=== PATIENT | male | born 1955 | race Hispanic/Latino ===

== ENCOUNTER 2017-09-26 19:23 | Inpatient (IN) | payer MEDICARE ==
[2017-09-26] MEDS ORDERED: Acetaminophen 500 MG TAB ONE (20:14)
[2017-09-26 20:28] LABS: #Eosinphils 0.1 thou/uL (0.0-0.7); #Lymphocytes 0.9 thou/uL (1.20-3.40); #Monocytes 0.4 thou/uL (0.11-0.59); #Neutrophils 9.2 thou/uL (1.40-6.50); %Basophils 0.1 % (0.0-1.0); %Eosinophils 0.5 % (0.0-10.0); %Lymphocytes 8.7 % (21.0-51.0); %Monocytes 3.4 % (0.0-10.0); %Neutrophils 87.3 % (42.0-75.0); Hemoglobin 11.1 g/dL (14.0-18.0); Mean Corpuscular HGB CONC 32.6 g/dL (32.0-36.0); Mean Corpuscular Hemoglobin 29.7 pg (27.0-31.0); Mean Corpuscular Volume 91.3 fl (80.0-94.0); Mean Platelet Volume 7.8 fL (7.4-10.4); Platelet Count 218 thou/uL (130-400); RBC Distribution Width 15.7 % (11.5-14.5); Red Blood Cell (RBC) Count 3.75 mill/uL (4.70-6.10); White Blood Cell (WBC) Count 10.5 thou/uL (4.8-10.8)
[2017-09-26] MEDS ORDERED: Piperacillin/Tazobactam 4.5 GM VIAL ONE (21:13)
[2017-09-26 21:16] LABS: ALT (SGPT) 13 U/L (8-55); AST (SGOT) 13 U/L (5-34); Albumin 3.8 g/dL (3.4-4.8); Alkaline Phosphatase 83 U/L (40-150); Anion Gap 15 mmol/L (10-20); BUN (Urea Nitrogen) 19 mg/dL (8.4-25.7); Bilirubin, Total 0.5 mg/dL (0.2-1.2); Calc. Creatinine Clearance 0 mL/min (70-130); Calcium 8.4 mg/dL (7.8-10.44); Carbon Dioxide 27 mmol/L (23-31); Chloride 97 mmol/L (98-107); Estimated GFR-MDRD 16; Globulin 3.8 g/dL (2.4-3.5); Glucose 136 mg/dL (80-115); Potassium 4.2 mmol/L (3.5-5.1); Protein, Total 7.6 g/dL (5.8-8.1); Sodium 135 mmol/L (136-145)
--- NOTE | 2017-09-26 21:58 | RAD ---
PORTABLE CHEST: 09/26/17 HISTORY: Vomiting with chills and fever. Possible aspiration. COMPARISON: 09/06/16. There is infiltrate in the right infrahilar region which would be suspicious for aspiration pneumonia . There is also abnormal opacity in the left base consistent with left basilar infiltrate and possibl e effusion. Upper lung castañeda are clear. Heart size is upper normal with postop sternotomy change. Di alysis catheter has tip overlying the right atrium. IMPRESSION: Evidence of bibasilar infiltrates. POS: [facility]
[2017-09-26 22:32] LABS: Bilirubin Negative (Negative); Clarity CLEAR (Clear); Glucose, Urine (Dipstick) 100 mg/dL (Negative); Leukocyte Negative (Negative); Nitrite Negative (Negative); Protein, Urine (Dipstick) > or equal to 300 mg/dL (Neg-Trace); Specific Gravity, Urine 1.016 (1.002-1.036); Urobilinogen 0.2 mg/dL (0.2-1.0)
[2017-09-26 22:35] LABS: Bacteria/HPF None Seen HPF (None Seen); Hyaline Casts/LPF 4-6 HYALINE CAST LPF (0-3 Hyaline); Pathc Cast-AUWi Flag 0.29 (0-2.49); WBC/HPF 0-3 HPF (0-3); Yeast-AUWi Flag 8.5 (0-25.0)
[2017-09-26 22:37] LABS: Blood, Urine Trace (Negative)
[2017-09-26 22:55] LABS: RBC/HPF 0-3 HPF (0-3); Sperm/HPF 1+ HPF (None Seen)
[2017-09-27] MEDS ORDERED: Acetaminophen 325 MG TAB PO PRN (01:04)
[2017-09-27 03:51] VITALS: BMI 23.8
[2017-09-27] MEDS ORDERED: Clopidogrel Bisulfate 75 MG TAB PO SCH (09:00)
[2017-09-27] MEDS: Gabapentin 300 MG CAP PO SCH ×2 (09:33→21:12)
[2017-09-27] MEDS: Enoxaparin Sodium 40 MG/0.4 ML SYRINGE SC SCH (09:33)
[2017-09-27] MEDS: Aspirin 81 mg Enteric Coated Tablet PO SCH (09:34)
[2017-09-27] MEDS: Pantoprazole 40 MG VIAL IVP SCH (09:34)
[2017-09-27] MEDS: Sodium Chloride 0.9% 1,000 ML IV SCH ×2 (09:35→21:11)
--- NOTE | 2017-09-27 10:02 | HP ---
CHIEF COMPLAINT: Fever, nausea, and vomiting. HISTORY OF PRESENT ILLNESS: This is a 62-year-old male with multiple medical problems inclu ding end-stage renal disease on hemodialysis, coronary artery disease, atherosclerotic vascular disea se, status post coronary bypass graft, status post fem-pop bypass, status post CVA who presents to [facility] emergency department last night with complaints of onset of fever and nausea and vomiting yesterday while in dialysis. The patient states that he was in his usual state of health, went to dialysis, s tated that he had 2 episodes of vomiting and had developed a fever during his time in dialysis. He h ad increased weakness. He denies any cough. Denies recent upper respiratory symptoms. He presented to the emergency department due to the fever and vomiting, was found to have a bibasilar infiltrate consistent with pneumonia. He was started on IV antibiotics including Zosyn, Levaquin, and vancomyci n in the ER. He states that he is feeling some better now, continues to feel weak, has on and off fe vers. No further nausea or vomiting. Still denies any cough at this time. Of note, he had an extended stay in the hospital 3 years ago due to apparent aspiration pneumonia, re spiratory failure, required ICU monitoring and mechanical ventilation. He had a PEG tube placed duri ng that hospitalization. He subsequently recovered from that, was able to swallow better and has bee n swallowing at risk since that time. PAST MEDICAL HISTORY: End-stage renal disease on dialysis, hypertension, hyperlipidemia, type 2 diab etes, cardiomyopathy with ejection fraction less than 30%, peripheral vascular disease, history of CV A, anxiety and depression. PAST SURGICAL HISTORY: Three-vessel fem-pop bypass in 2006, history of aneurysm repair in 2010, righ t fem-pop bypass in 2010. MEDICATIONS: Aspirin 81 mg daily, gabapentin 600 mg once daily, clonidine 0.1 mg q.8h. p.r.n., simva statin 40 mg at bedtime, Plavix 75 mg at bedtime, pantoprazole once daily, Levemir 15 units b.i.d., H umalog with meals, sertraline 100 mg daily, lisinopril 10 mg daily. SOCIAL HISTORY: He lives at home, has home health and family nearby. No alcohol or drug use. Liliana nues to smoke 5-6 cigarettes a day. FAMILY HISTORY: Positive for diabetes, hypertension and heart disease. REVIEW OF SYSTEMS: As per the history of present illness. GENERAL: Positive for weakness. HEENT: No visual or hearing changes. No cough or congestion. CARDIAC: No chest pain, shortness of breath. PULMONARY: Denies cough or hemoptysis. GASTROINTESTINAL: Positive nausea and vomiting. No abdominal pain, melena, hematochezia. GENITOURINARY: No dysuria or hematuria. He is still urinating in a diaper. History of BPH. NEUROLOGIC: History of cerebrovascular accident with resultant hemiparesis and dysphagia, status pos t PEG tube placement and resultant removal. PHYSICAL EXAMINATION: VITAL SIGNS: Temperature 98.7, pulse of 82, respirations 16, blood pressure 147/65, pulse ox 92-94% on room air. GENERAL: He is awake and alert, in no acute distress. He appears comfortable. Mucosa is dry. NECK: Supple. HEART: Regular rate and rhythm with 2/6 systolic ejection murmur. LUNGS: No wheezes, occasional rhonchi bilaterally. ABDOMEN: Soft, nontender, nondistended. EXTREMITIES: No edema. 2+ peripheral pulses bilaterally. LABORATORY AND X-RAY FINDINGS: White blood cell count 10.5, hemoglobin hematocrit 11.1 and 34.2, rika telets of 218. Sodium 135, potassium 4.2, chloride 97, CO2 of 27, BUN and creatinine 19 and 3.8 with a GFR of 16, glucose of 136. AST and ALT are normal. Lactic acid was 1.7. Blood cultures are pend ing. Chest x-ray from last night revealed evidence of bibasilar infiltrate suspicious for aspiration pneum onia. ASSESSMENT: 1. This is a 62-year-old gentleman with multiple medical problems with history dysphagia due to a ce rebrovascular accident in the past, now with a suspicion for aspiration pneumonia. I agree with admi gudelia. We will continue IV Levaquin. 2. Possible aspiration. We will make n.p.o. at this time and consult Speech Therapy for swallow viktoria luation. 3. End stage renal disease. We will consult Nephrology and continue dialysis as his protocol. 4. Type 2 diabetes. We will hold routine insulin as he is n.p.o. and cover with a sliding scale. 5. Hypertension. I will continue his medications. 6. History of cerebrovascular accident.
[2017-09-27] MEDS: Nicotine 7 MG PATCH TOP SCH (14:53)
[2017-09-27] MEDS: HumaLOG 300 UNITS/3 ML VIAL SC SCH ×2 (15:20→18:37)
--- NOTE | 2017-09-27 15:31 | RAD ---
MODIFIED BARIUM SWALLOW: History: Dysphagia with feeding difficulties. Technique: Real-time video fluoroscopic examination was performed in conjunction with the speech ther apy department. The patient received various thicknesses of barium impregnated fluid and solid substa nces. Please see the speech therapy report for details concerning the materials administered. The tot al fluoroscopic time for the exam was 1.5 minutes with a total exposure of 0.573 mGy*cm^2. FINDINGS: The patient did have episodes of flash penetration with thin barium liquids by spoon as well as by cu p. There were no episodes of aspiration. The patient no episodes of tracheal penetration of aspiratio n with barium impregnated pudding or cookie. The patient did have a mild amount of pooling of all con sistencies within the vallecula. IMPRESSION: 1. Flash penetration with thin barium liquids. No aspiration was obtained. 2. Mild pooling with all consistencies. 3. Please see speech therapy report for full details. POS: [facility]
[2017-09-28] MEDS: cloNIDine 0.1 MG TAB PO PRN ×2 (00:08→09:57)
[2017-09-28] MEDS: HumaLOG 300 UNITS/3 ML VIAL SC SCH ×4 (00:08→19:07)
[2017-09-28 05:41] LABS: #Basophils 0.1 thou/uL (0.0-0.2); #Eosinphils 0.1 thou/uL (0.0-0.7); #Lymphocytes 1.7 thou/uL (1.20-3.40); #Monocytes 0.8 thou/uL (0.11-0.59); #Neutrophils 6.3 thou/uL (1.40-6.50); %Basophils 0.9 % (0.0-1.0); %Eosinophils 1.3 % (0.0-10.0); %Lymphocytes 19.3 % (21.0-51.0); %Monocytes 8.5 % (0.0-10.0); Mean Corpuscular HGB CONC 32.4 g/dL (32.0-36.0); Mean Corpuscular Hemoglobin 29.5 pg (27.0-31.0); Mean Corpuscular Volume 91.1 fl (80.0-94.0); Mean Platelet Volume 8.1 fL (7.4-10.4); Platelet Count 159 thou/uL (130-400); RBC Distribution Width 15.6 % (11.5-14.5); Red Blood Cell (RBC) Count 3.04 mill/uL (4.70-6.10)
[2017-09-28 05:52] LABS: ALT (SGPT) 34 U/L (8-55); AST (SGOT) 37 U/L (5-34); Albumin 3.2 g/dL (3.4-4.8); Alkaline Phosphatase 95 U/L (40-150); Anion Gap 15 mmol/L (10-20); BUN (Urea Nitrogen) 39 mg/dL (8.4-25.7); Bilirubin, Total 0.5 mg/dL (0.2-1.2); Calc. Creatinine Clearance 13 mL/min (70-130); Calcium 8.5 mg/dL (7.8-10.44); Carbon Dioxide 25 mmol/L (23-31); Chloride 97 mmol/L (98-107); Estimated GFR-MDRD 10; Globulin 3.1 g/dL (2.4-3.5); Glucose 134 mg/dL (80-115); Potassium 4.4 mmol/L (3.5-5.1); Protein, Total 6.3 g/dL (5.8-8.1); Sodium 133 mmol/L (136-145)
[2017-09-28] MEDS: Sodium Chloride 0.9% 1,000 ML IV SCH ×3 (06:36→20:44)
--- NOTE | 2017-09-28 07:45 | RAD ---
CHEST 1 VIEW: HISTORY: Fever. Chest pain. COMPARISON: 09/26/17. FINDINGS: Cardiac silhouette is magnified and upper limits of normal in size. Pulmonary vasculature is less en gorged than on the prior study. Infiltrate at the right lung bas is again demonstrated. Left lung b ase is less opacified than on the prior study. Mediastinum is midline with aortic calcification, pos toperative changes, and a right-sided dialysis catheter. IMPRESSION: Interval decrease in degree of pulmonary vascular congestion. Persistent right basilar infiltrate, c onsistent with pneumonia. POS: [facility]
[2017-09-28] MEDS ORDERED: Heparin 1,000 UNITS/ML VIAL ONE (11:11)
[2017-09-28] MEDS ORDERED: Loperamide HCl 2 MG CAP PO PRN (12:59)
[2017-09-28] MEDS ORDERED: hydrALAZINE 25 MG TAB PO SCH (13:00)
--- NOTE | 2017-09-28 13:21 | PRG ---
DATE OF SERVICE: 09/28/2017 SUBJECTIVE: The patient is feeling some better, continues to deny cough. He is less short of breath . He is more awake and alert, and back to his baseline as per his daughter. He has not had any furt her bouts of nausea or vomiting. Speech Therapy has performed their evaluation including a modified barium swallow and has made the recommendations as far as his swallowing and he is tolerating his t at this time. No fevers or chills. OBJECTIVE: VITAL SIGNS: Temperature 98.4, pulse of 89, respirations 18, blood pressure 180/77, pulse ox is 94% on room air. GENERAL: He is awake and alert, in no acute distress. Slow speech, but clear. NECK: Supple. HEART: Regular rate and rhythm. LUNGS: Clear anteriorly. ABDOMEN: Soft. EXTREMITIES: No edema. LABORATORY DATA: White blood cell count 9000, hemoglobin and hematocrit 9 and 27.7, platelets of 159 . Sodium 133, potassium 4.4, chloride 97, CO2 of 25, BUN and creatinine 39 and 5.92 with a GFR of 10 . Serum glucose 157, 172, 109. AST and ALT are normal. Chest x-ray showed some improvement from . Continues to have right basilar infiltrate. ASSESSMENT AND PLAN: 1. This is a 62-year-old gentleman with multiple medical problems including history of dysphagia sec ondary to a CVA, history of repeated hospitalizations for aspiration pneumonia, now with apparent rec urrence of aspiration pneumonia. He has improved significantly with IV Levaquin and will continue th at at this time. 2. Recurrent aspiration, recommendations as per Speech Therapy and Dietary for his diet at this time . 3. End stage renal disease. We will continue dialysis as per Nephrology. 4. Type 2 diabetes. We will start his insulin now that he is starting a diet again and monitor clos josh. 5. Hypertension. We will start him back on his lisinopril as well as hydralazine p.r.n. 6. Anemia, likely secondary to chronic disease and renal disease. Continue to monitor closely. DISPOSITION: Hopefully home in the next 1-2 days. Home health has already been arranged and will co kathy as he has been receiving that.
[2017-09-28] MEDS: Enoxaparin Sodium 40 MG/0.4 ML SYRINGE SC SCH (13:58)
[2017-09-28] MEDS: Gabapentin 300 MG CAP PO SCH ×2 (13:58→20:33)
[2017-09-28] MEDS: Aspirin 81 mg Enteric Coated Tablet PO SCH (13:59)
[2017-09-28] MEDS: Pantoprazole 40 MG VIAL IVP SCH (14:04)
[2017-09-28] MEDS: Nicotine 7 MG PATCH TOP SCH (16:43)
[2017-09-28] MEDS: hydrALAZINE 25 MG TAB PO SCH (20:29)
[2017-09-28] MEDS: Lisinopril 10 MG TAB PO SCH (20:34)
[2017-09-29] MEDS: HumaLOG 300 UNITS/3 ML VIAL SC SCH ×4 (00:48→18:48)
[2017-09-29 05:34] LABS: #Eosinphils 0.1 thou/uL (0.0-0.7); #Lymphocytes 1.4 thou/uL (1.20-3.40); #Monocytes 0.6 thou/uL (0.11-0.59); %Basophils 0.2 % (0.0-1.0); %Eosinophils 1.6 % (0.0-10.0); %Lymphocytes 16.9 % (21.0-51.0); %Monocytes 6.9 % (0.0-10.0); %Neutrophils 74.4 % (42.0-75.0); Hemoglobin 8.9 g/dL (14.0-18.0); Mean Corpuscular HGB CONC 32.1 g/dL (32.0-36.0); Mean Corpuscular Hemoglobin 29.6 pg (27.0-31.0); Mean Corpuscular Volume 92.2 fl (80.0-94.0); Mean Platelet Volume 8.3 fL (7.4-10.4); Platelet Count 171 thou/uL (130-400); RBC Distribution Width 15.6 % (11.5-14.5); Red Blood Cell (RBC) Count 3.01 mill/uL (4.70-6.10)
[2017-09-29 05:55] LABS: ALT (SGPT) 20 U/L (8-55); AST (SGOT) 12 U/L (5-34); Albumin 3.1 g/dL (3.4-4.8); Alkaline Phosphatase 78 U/L (40-150); Anion Gap 17 mmol/L (10-20); BUN (Urea Nitrogen) 26 mg/dL (8.4-25.7); Bilirubin, Total 0.5 mg/dL (0.2-1.2); Calc. Creatinine Clearance 17 mL/min (70-130); Calcium 8.6 mg/dL (7.8-10.44); Carbon Dioxide 21 mmol/L (23-31); Chloride 102 mmol/L (98-107); Estimated GFR-MDRD 13; Globulin 3.1 g/dL (2.4-3.5); Glucose 129 mg/dL (80-115); Potassium 4.3 mmol/L (3.5-5.1); Protein, Total 6.2 g/dL (5.8-8.1); Sodium 136 mmol/L (136-145)
[2017-09-29] MEDS: Sodium Chloride 0.9% 1,000 ML IV SCH (06:56)
[2017-09-29] MEDS: hydrALAZINE 25 MG TAB PO SCH ×3 (08:59→21:36)
[2017-09-29] MEDS: Pantoprazole 40 MG VIAL IVP SCH (08:59)
[2017-09-29] MEDS: Gabapentin 300 MG CAP PO SCH ×2 (08:59→21:36)
[2017-09-29] MEDS: Lisinopril 10 MG TAB PO SCH ×2 (09:00→21:36)
[2017-09-29] MEDS: Aspirin 81 mg Enteric Coated Tablet PO SCH (09:00)
[2017-09-29] MEDS ORDERED: Fluconazole 100 MG TAB PO SCH (11:13)
[2017-09-29] MEDS: Nicotine 7 MG PATCH TOP SCH (16:41)
[2017-09-30] MEDS: HumaLOG 300 UNITS/3 ML VIAL SC SCH ×4 (01:37→18:37)
[2017-09-30] MEDS: Aspirin 81 mg Enteric Coated Tablet PO SCH (09:08)
[2017-09-30] MEDS: Fluconazole 100 MG TAB PO SCH (09:09)
[2017-09-30] MEDS: Gabapentin 300 MG CAP PO SCH ×2 (09:10→21:49)
[2017-09-30] MEDS: hydrALAZINE 25 MG TAB PO SCH ×3 (09:10→21:50)
[2017-09-30] MEDS: Lisinopril 10 MG TAB PO SCH ×2 (09:11→21:50)
[2017-09-30] MEDS: Nicotine 7 MG PATCH TOP SCH (12:23)
--- NOTE | 2017-09-30 20:45 | PRG ---
DATE OF SERVICE: 09/30/2017 HISTORY OF PRESENT ILLNESS: The patient has not thrown up since yesterday following posttussive emes is. He currently has no acute complaints. Verbalized understanding regarding increase in his blood pressure medication. Has no chest pain, headaches, or vision changes. The patient is typically on d ialysis every Sunday, Sunday, and Sunday. Denies any acute shortness of breath currently. PHYSICAL EXAMINATION: VITAL SIGNS: Temperature of 98.8, pulse of 86, respiratory rate of 16, oxygen saturation 96% on room air, blood pressure in the last 12 hours 140 systolic over 60 diastolic following increase in hydral azine. GENERAL: The patient is alert, oriented, in no acute distress. HEENT: Head is normocephalic, atraumatic. Extraocular movements are intact. Sclerae are clear. Or al mucosa is moist. NECK: Supple. CHEST: Hemodialysis tunnel catheter to right chest wall is intact. HEART: Regular rate and rhythm. No murmurs auscultated. LUNGS: Clear to auscultation bilaterally. ABDOMEN: Soft, nontender. Positive bowel sounds throughout. EXTREMITIES: Lower extremities without cyanosis or edema. LABORATORY DATA: Review of laboratory work, blood glucoses last 12 hours ranged from 135 to 234. No change in culture report. ASSESSMENT: Pneumonia; end-stage renal disease, on hemodialysis; dysphagia; hypertension; type 2 emili betes. PLAN: The patient is continued on sliding scale insulin checks, currently controlled. He was starte d on diet and tolerated dinner last night somewhat and breakfast this morning. He says he is not mirian y hungry, but is forcing himself. Blood pressures have become more satisfactory following increase i n hydralazine, continuation of lisinopril. Continuation of Levaquin at this point. Likely following hemodialysis tomorrow, potential discharge. We will check with Dr. Horace Hoff.
[2017-09-30] MEDS: cloNIDine 0.1 MG TAB PO PRN (22:59)
[2017-10-01] MEDS: HumaLOG 300 UNITS/3 ML VIAL SC SCH ×4 (00:41→12:45)
[2017-10-01 05:12] LABS: ALT (SGPT) 16 U/L (8-55); AST (SGOT) 9 U/L (5-34); Albumin 3.2 g/dL (3.4-4.8); Alkaline Phosphatase 71 U/L (40-150); Anion Gap 16 mmol/L (10-20); BUN (Urea Nitrogen) 48 mg/dL (8.4-25.7); Bilirubin, Total 0.3 mg/dL (0.2-1.2); Calc. Creatinine Clearance 11 mL/min (70-130); Calcium 8.5 mg/dL (7.8-10.44); Carbon Dioxide 23 mmol/L (23-31); Chloride 101 mmol/L (98-107); Estimated GFR-MDRD 7; Globulin 2.9 g/dL (2.4-3.5); Glucose 159 mg/dL (80-115); Magnesium 2.1 mg/dL (1.6-2.6); Phosphorus 4.4 mg/dL (2.3-4.7); Potassium 4.1 mmol/L (3.5-5.1); Protein, Total 6.1 g/dL (5.8-8.1); Sodium 136 mmol/L (136-145)
--- NOTE | 2017-10-01 09:20 | PRG ---
DATE OF SERVICE: 09/29/2017 SUBJECTIVE: The patient passed swallow evaluation and been ordered on a renal high protein modified mechanical diet following a chronic dysphagia, post-CVA. The patient's blood pressure remained somew hat labile. He has been increased from his outpatient lisinopril and hydralazine by Dr. Imperial. Martha mcgrath at bedside and was concerned about that. He has had an episode of posttussive emesis today, but otherwise states he feels good. The patient typically gets dialysis on Sunday, Sunday, and . No new complaints. OBJECTIVE: VITAL SIGNS: On review, temperature of 97.8, respiratory rate of 20, heart rate of 88, oxygen satura tion 98% on room air and blood pressure 172/72. GENERAL: The patient is alert and oriented, no acute distress. HEENT: Head is normocephalic and atraumatic. Extraocular movements are intact. Sclerae are clear. Oral mucosa is moist. NECK: Supple. HEART: Regular rate and rhythm at time of the exam. LUNGS: Clear to auscultation bilaterally. No rubs or murmurs. ABDOMEN: Soft and nontender, positive bowel sounds throughout. Dialysis access via tunneled cathete r in the right subclavian. NEUROLOGIC: The patient is alert and oriented x3, no focal deficits. Speech is normal. LABORATORY WORK: White blood count of 8.0, hemoglobin of 8.9 and platelet count of 171. Sodium of 1 36, potassium of 4.3, CO2 of 21, creatinine of 4.6, glucose ranged from 126-159 in the last 16 hours. Cultures; no growth at 24 hours. Stool samples showing negative toxin assays. Yeast species is cu rrently preliminary positive on stool culture. The patient's diarrhea, which he had prior to admissi on is now somewhat subsided he reports in the last 36 hours. ASSESSMENT AND PLAN: Pneumonia, presumed to be aspiration; end-stage renal disease, on hemodialysis; hypertension; dysphagia; diabetes type 2, continuing sliding scale insulin as the patient tolerates; poor diet, may need to restart his home 20 units b.i.d. scheduled Levemir. We will continue to [facility], currently controlled. Discontinue IV fluids. Now, that diet has been restarted. Hypertension: Increase the patient's hydralazine to 50 mg t.i.d. Continue lisinopril since the patient does not have hyperkalemia. We will continue to titrate currently as clonidine p.r.n., may consider schedulin g if blood pressure remains uncontrolled, likely dialysis on Sunday and potential discharge following continuing Levaquin at this point for pneumonia. The patient remains respiratory quintana stable.
[2017-10-01 12:11] VITALS: TEMP 98.6
[2017-10-01] MEDS: hydrALAZINE 25 MG TAB PO SCH (12:34)
[2017-10-01] MEDS: Gabapentin 300 MG CAP PO SCH (12:35)
[2017-10-01] MEDS: Lisinopril 10 MG TAB PO SCH (12:35)
[2017-10-01] MEDS: Fluconazole 100 MG TAB PO SCH (12:35)
[2017-10-01] MEDS: Aspirin 81 mg Enteric Coated Tablet PO SCH (12:36)
[2017-10-01 12:45] VITALS: BP 208/91
[2017-10-01] MEDS: Nicotine 7 MG PATCH TOP SCH (12:45)
== END 2017-10-01 14:18 | disposition home health service (06) | DRG 177 ==
LOC: ERS 19:23 → 2SE 09-27 00:24
PROVIDERS: ADMIT Family Medicine; ATTEND Family Medicine
PROC: 5A1D70Z Performance of Urinary Filtration, Intermittent, Less than 6 Hours Per Day (ICD-10-PCS; principal; 2017-09-28)
DX: J69.0 Pneumonitis due to inhalation of food and vomit (principal); N18.6 End stage renal disease; E11.22 Type 2 diabetes mellitus with diabetic chronic kidney disease; E11.51 Type 2 diabetes mellitus with diabetic peripheral angiopathy without gangrene; I12.0 Hypertensive chronic kidney disease with stage 5 chronic kidney disease or end stage renal disease; I42.9 Cardiomyopathy, unspecified; I69.391 Dysphagia following cerebral infarction; R13.12 Dysphagia, oropharyngeal phase; R63.3 Feeding difficulties; D63.1 Anemia in chronic kidney disease; Z99.2 Dependence on renal dialysis; I25.10 Atherosclerotic heart disease of native coronary artery without angina pectoris; Z95.820 Peripheral vascular angioplasty status with implants and grafts; M19.90 Unspecified osteoarthritis, unspecified site; E78.5 Hyperlipidemia, unspecified; J44.9 Chronic obstructive pulmonary disease, unspecified; I25.2 Old myocardial infarction; F17.210 Nicotine dependence, cigarettes, uncomplicated; Z86.73 Personal history of transient ischemic attack (TIA), and cerebral infarction without residual deficits; Z95.1 Presence of aortocoronary bypass graft; F41.8 Other specified anxiety disorders; Z79.02 Long term (current) use of antithrombotics/antiplatelets; Z79.4 Long term (current) use of insulin; Z79.82 Long term (current) use of aspirin; Z88.5 Allergy status to narcotic agent
CPT/HCPCS: 36415; 36416; 51701; 71045; 74230; 80053; 81003; 81015; 83605; 83735; 84100; 85025; 87040; 87045; 87046; 87086; 87324; 87449; 87899; 90935; 93005; 93010; 96365; 96367; A4216; C9113; G0257; G8996-GN-CI; G8996-GN-CL; G8997-GN-CI; J1644; J1650; J1956; J2543; J3370

== ENCOUNTER 2017-10-11 19:06 | Inpatient (IN) | payer MEDICARE ==
[~2017-10-11 19:06] MED LIST: ISOVUE-370 76%-LOCM 1 ML ONE
[2017-10-11 19:56] LABS: #Eosinphils 0.1 thou/uL (0.0-0.7); #Lymphocytes 2.7 thou/uL (1.20-3.40); #Monocytes 1.1 thou/uL (0.11-0.59); %Basophils 0.1 % (0.0-1.0); %Eosinophils 0.4 % (0.0-10.0); %Lymphocytes 18.4 % (21.0-51.0); %Monocytes 7.7 % (0.0-10.0); %Neutrophils 73.5 % (42.0-75.0); Hemoglobin 9.4 g/dL (14.0-18.0); Mean Corpuscular HGB CONC 31.5 g/dL (32.0-36.0); Mean Corpuscular Hemoglobin 28.6 pg (27.0-31.0); Mean Corpuscular Volume 90.8 fl (80.0-94.0); Mean Platelet Volume 8.1 fL (7.4-10.4); Platelet Count 191 thou/uL (130-400); RBC Distribution Width 15.6 % (11.5-14.5); Red Blood Cell (RBC) Count 3.27 mill/uL (4.70-6.10); White Blood Cell (WBC) Count 14.9 thou/uL (4.8-10.8)
[2017-10-11 20:22] LABS: ALT (SGPT) 11 U/L (8-55); AST (SGOT) 16 U/L (5-34); Albumin 3.7 g/dL (3.4-4.8); Alkaline Phosphatase 88 U/L (40-150); Anion Gap 20 mmol/L (10-20); BUN (Urea Nitrogen) 28 mg/dL (8.4-25.7); Bilirubin, Total 0.4 mg/dL (0.2-1.2); Calc. Creatinine Clearance 0 mL/min (70-130); Calcium 8.5 mg/dL (7.8-10.44); Carbon Dioxide 23 mmol/L (23-31); Chloride 98 mmol/L (98-107); Estimated GFR-MDRD 12; Globulin 3.1 g/dL (2.4-3.5); Glucose 148 mg/dL (80-115); Potassium 4.2 mmol/L (3.5-5.1); Protein, Total 6.8 g/dL (5.8-8.1); Sodium 137 mmol/L (136-145)
[2017-10-11] MEDS ORDERED: Furosemide 40 MG/4 ML VIAL ONE (20:31)
[2017-10-11 20:34] LABS: CKMB 1.7 ng/mL (0-6.6); Troponin I 0.022 ng/mL (< 0.028)
--- NOTE | 2017-10-11 20:38 | RAD ---
AP VIEW OF THE CHEST: 10/11/17 INDICATION: History of dyspnea and leg swelling. FINDINGS: There is prominent more mass like consolidation within the right lower lobe suspicious for worsening pneumonia. There are bilateral pleural effusions, left greater than right which are new. There is wor sening pulmonary vascular congestion and cardiomegaly. There is a right IJ dialysis catheter which is stable. Midline sternotomy changes are stable. Costophrenic angles are excluded. No acute osseous ab normality is evident. IMPRESSION: 1. Worsening right lower lobe air space opacity suspicious for pneumonia. 2. Findings of volume overload or CHF. POS: [facility]
--- NOTE | 2017-10-11 20:51 | CT ---
CTA OF THE THORAX UTILIZING IV CONTRAST AND 3D REFORMAT IMAGIN10/11/17 COMPARISON: Chest radiograph dated 10/11/17 and 09/28/17. FINDINGS: No central or segmental pulmonary embolus is evident. There is enlarged lymph nodes within the mediastinum. Largest seen within the subcarinal region measu ring 2.2 cm. There is postsurgical change of prior CABG. There is moderate narrowing involving the proximal left s ubclavian artery. There are small to moderate bilateral pleural effusions, left greater than right. There is bibasilar air space opacity suspicious for atelectasis. There is a 3.7 cm mass within the right lower lobe whic h was not definitely appreciated on the comparison dated 09/28/17 but may have been obscured by overlyi ng air space opacity. The visualized upper abdomen is unremarkable. No definite acute osseous abnorma lity is evident. IMPRESSION: 1. No central or segmental pulmonary embolus. 2. Right lower lobe mass suspicious for malignancy. 3. Moderate bilateral pleural effusions with bibasilar air space opacity suspicious for atelecta sis. Code T POS: [facility]
[2017-10-11 23:59] VITALS: BMI 24.5
[2017-10-12] MEDS ORDERED: Ondansetron HCl/PF 4 MG/2 ML Vial IVP PRN (00:04)
[2017-10-12] MEDS ORDERED: Ondansetron ODT 4 MG TAB SL PRN (00:04)
[2017-10-12] MEDS ORDERED: Sodium Chloride 0.9% 1,000 ML IV SCH (00:04)
[2017-10-12 03:43] LABS: Troponin I 0.066 ng/mL (< 0.028)
[2017-10-12] MEDS ORDERED: Loperamide HCl 2 MG CAP PO PRN (08:17)
[2017-10-12] MEDS ORDERED: cefTRIAXone\\ROCEPHIN 1 GM in Sodium Chloride 0.9% 100 ML IVPB SCH (08:30)
[2017-10-12] MEDS ORDERED: Non-Formulary Item 1 EACH (Levemir Flexpen [Levemir Flexpen] 15 UNITS) SC SCH (09:00)
--- NOTE | 2017-10-12 14:01 | CON ---
DATE OF CONSULTATION: 10/12/2017 70 minutes time spent on consultation. Of that time, >50% was spent with the patient and/or on the patients unit. I also spoke extensively with the patient' s daughter about the case face to face. HISTORY OF PRESENT ILLNESS: This is a 62-year-old male, who was admitted last night with increasing shortness of breath and congestive heart failure. Dr. Hoff asked me to see the patient in regards to a lung mass. I have actually seen the patient before, but not since 2015. He has end-stage renal disease and requires 3 times weekly dialysis, which he has not skip. He was recently in the hospital with possible aspiration pneumonia. At that time, he had what appeared to be a right lower lobe density. CT was done last night showing a 3.7 well circumscribed mass-like infiltrate in the right lower lobe, close to the pleural surface, but not quite there. The density is actually about the same densities pleural fluid. He has an extensive history of smoking and continues to smoke about 2 cigarettes per day. He has never had cancer in the past. PAST MEDICAL HISTORY: 1. End-stage renal disease, requiring hemodialysis. 2. Hypertension. 3. Hyperlipidemia. 4. Diabetes mellitus type 2. 5. Cardiomyopathy with EF less than 30%. 6. Peripheral vascular disease. 7. History of stroke. 8. Anxiety. 9. Depression. PAST SURGICAL HISTORY: 1. Three-vessel fem-pop 2006. 2. Aneurysm 2010. 3. Right fem-pop 2010. MEDICATIONS: 1. Aspirin 81 mg daily. 2. Plavix 75 mg daily. 3. Clonidine 0.1 mg every 8 hours. 4. Simvastatin 40 mg nightly. 5. Levemir insulin. 6. Humalog insulin. 7. Sertraline. 8. Lisinopril. SOCIAL HISTORY: Heavy smoking history in the past, currently down to about 2-3 cigarettes per day. Lives at home. FAMILY MEDICAL HISTORY: Remarkable for diabetes, hypertension, and heart disease. REVIEW OF SYSTEMS: Twelve-point review of systems otherwise negative. PHYSICAL EXAMINATION: VITAL SIGNS: Temperature 99.1, pulse 86, respirations 16, O2 saturation 98%, and blood pressure 127/56. GENERAL: I saw him in dialysis. He was currently on a machine in no distress. HEENT: Pupils react. Sclerae icteric. Oropharynx clear. NECK: No adenopathy or JVD. CHEST: He has a right tunneled dialysis catheter that is probably going in the IJ. LUNGS: Clear without wheezing or rhonchi. CARDIAC: S1, S2 regular, without murmur. ABDOMEN: Soft, nontender. EXTREMITIES: Severe muscle wasting. NEUROLOGIC: Grossly intact throughout. LABORATORY DATA: White blood cell count 14.9, hematocrit 29.7, platelet count 191. Sodium 137, potassium 4.2, chloride 98, CO2 of 23, BUN 28, creatinine 4.9 , glucose 148. BNP 2754. CT was reviewed personally by myself showed the right lower lobe density. ASSESSMENT: 1. Possible right lower lobe lung mass. I am not totally convinced that this is not either trapped pleural fluid, resolving pneumonia, or rounded atelectasis. He has a very smooth border which is very inconsistent with malignancy. 2. Congestive heart failure. 3. End-stage renal disease. 4. Tobacco abuse. PLAN: The patient needs to be medically stable before considering a diagnostic procedure for this. It might be advisable to wait a week or two and repeat his chest x-ray and CT to see if this is just resolving pneumonia. If CT needle biopsy were to be performed then Interventional Radiology would ordinarily require the patient to be off Plavix and aspirin for a week prior. I am not sure it safe to do that. I would need primary care input to determine if that is safe. Bronchoscopy would be an alternative means of diagnosis. I am somewhat worried about his risk for undergoing invasive procedures and conscious sedation. Bronchoscopy might have to be limited brushings that the patient was required to continue aspirin and Plavix. In all this is a difficult situation and the best answer may be to wait a few weeks and see what happens with the density with repeat imaging. Thank you for the referral. I will be happy to follow with you. DARLENE
[2017-10-12] MEDS: Clopidogrel Bisulfate 75 MG TAB PO SCH (15:23)
[2017-10-12] MEDS: Lisinopril 10 MG TAB PO SCH ×2 (15:23→21:18)
[2017-10-12] MEDS: hydrALAZINE 25 MG TAB PO SCH ×3 (15:24→21:18)
[2017-10-12] MEDS: Insulin Detemir 100 UNITS/ML 15 UNITS in Pre-Filled Syringe 1 EACH SC SCH ×2 (15:24→21:29)
[2017-10-12] MEDS: HumaLOG 300 UNITS/3 ML VIAL SC SCH ×2 (15:25→17:58)
[2017-10-12] MEDS: Aspirin 81 mg Enteric Coated Tablet PO SCH (15:27)
[2017-10-12] MEDS: cefTRIAXone\\ROCEPHIN 1 GM, Syringe 0.4 ML in Sterile Water 9.6 ML SLOW IVP SCH (15:27)
--- NOTE | 2017-10-12 19:14 | CON ---
DATE OF CONSULTATION: 10/12/2017 HISTORY: Rc Lubin is a 62-year-old male with previous history of CABG x3 in 2010 in [place] and multiple peripheral vascular procedures. He has end-stage renal disease and is on dialysis. Apparently, last evening he had problems with increased peripheral edema as well as tez rtness of breath and paramedics were called. Blood pressure is 184/60 at the time of admission. He did not complain of any chest discomfort. He currently is undergoing dialysis and states that his br eathing has dramatically improved. PAST MEDICAL HISTORY: Hypertension, diabetes, end-stage renal disease, and peripheral vascular disea se. OPERATIONS: Left femoral-popliteal bypass in 04/2007. In 10/2010, he underwent aortobifemoral bypas s by Dr. Stokes. In 2010, he had CABG x3 in [place]. He has had back surgery. He also apparently mendoza s undergone abdominal aortic aneurysm repair. MEDICATIONS: Aspirin 81 daily, atorvastatin 40 daily, Plavix 75 mg daily, gabapentin 600 at bedtime, hydralazine 50 t.i.d., Humalog 5 units t.i.d., Levemir 15 units b.i.d., lisinopril 10 mg b.i.d., Pro tonix 40 daily, Zoloft 100 q.a.m. ALLERGIES: MORPHINE. SOCIAL HISTORY: He smokes 5-6 cigarettes per day. He does not drink alcohol. REVIEW OF SYSTEMS: Ten point review of systems is otherwise unremarkable. PHYSICAL EXAMINATION: VITAL SIGNS: Blood pressure 127/56, pulse of 86. HEENT: PERRL. NECK: Supple. LUNGS: Chest is clear. CARDIAC: S1, S2 normal, without any S3, S4 or murmurs. ABDOMEN: Normal bowel sounds. EXTREMITIES: Revealed trace edema. NEUROLOGIC: Grossly intact. SKIN: Warm and dry. LABORATORY AND DIAGNOSTIC DATA: EKG on admission revealed sinus tachycardia, possible left ventricul ar hypertrophy with repolarization abnormalities. Hemoglobin 9.4, hematocrit 29.7, white count 14,90 0, and platelets 191,000. Sodium 137, potassium 4.2, chloride 98, carbon dioxide 23, BUN 28, and cre atinine 4.93. Troponin I is up to 0.066. BNP is 2754.7. Chest x-ray, right lower lobe opacity susp icious for pneumonia and findings of volume overload and congestive heart failure. A chest CT angiog jenny revealed no evidence of pulmonary embolism. There was a right lower lobe mass suspicious for mal ignancy. There are moderate bilateral effusions. IMPRESSION: 1. Volume overload, shortness of breath. In 11/2014, he had an echocardiogram revealed ejection fra ction of 55% to 60%. A repeat echocardiogram has been ordered. 2. End-stage renal disease. 3. Hypertension. 4. Hypercholesterolemia. 5. Diabetes. 6. The patient continues to smoke. PLAN: The patient is currently undergoing dialysis for volume removal. He may need further evaluati on of his right lung mass. Echocardiogram will be performed to reassess left ventricular function.
[2017-10-12] MEDS: Atorvastatin Calcium 40 MG TAB PO SCH (21:19)
[2017-10-12] MEDS: Gabapentin 300 MG CAP PO SCH (21:19)
--- NOTE | 2017-10-12 21:53 | HP ---
DATE OF CONSULTATION: 10/12/2017 CHIEF COMPLAINT: Shortness of breath, leg swelling, cough. HOSPITAL COURSE: This is a 62 -year-old gentleman with end-stage renal disease on hemodialysis, type 2 diabetes, hypertension, hyperlipidemia, status post CVA, cardiomyopathy with ejection fraction les s than 30%, presented to the emergency department with sudden onset of shortness of breath and swelli ng in his legs. Of note, he was recently admitted 3 weeks ago for a cough, fever, and shortness of b reath. He was found to have aspiration pneumonia. He has had frequent bouts of aspiration pneumonia since his CVA. During dialysis, he tends to eat well. He is lying down, which is caused him to asp irate in the past. During that last hospitalization, he improved on antibiotics. He underwent again speech therapy and swallow evaluation. Proper arrangements were made for him for swallow precaution s and he had been doing well. He was seen as an outpatient for a followup from that hospitalization and things were stable until yesterday and when he developed sudden onset of shortness of breath, inc reased weakness and swelling. He has a chronic cough. He denied fevers at this time. He was seen i n the emergency department and found to be fluid overloaded clinically. His initial cardiac enzymes were indeterminate, but his BNP was elevated. He was due for dialysis on the day of admission and th at was to be done to help him. It is possible that he was fluid overload during his last bout of pne umonia. He denied chest pain. PAST MEDICAL HISTORY: Again, type 2 diabetes insulin-dependent, end-stage renal disease on dialysis, hypertension, hyperlipidemia, cardiomyopathy with decreased left ventricular ejection fraction, carline pheral vascular disease, history of CVA, anxiety, depression. MEDICATIONS: Include aspirin 81 mg, gabapentin 600 mg in the evening, clonidine 0.1 q.8 hours p.r.n. , simvastatin 40 mg at bedtime, Plavix 75 mg at bedtime, pantoprazole once daily, Levemir 15 units b. i.d., Humalog with meals, sertraline 100 mg daily, lisinopril 10 mg daily. PAST SURGICAL HISTORY: Three-vessel coronary artery bypass graft in 2006, right fem-pop bypass surge ry in 2010, history of aneurysm repair in 2010. Dialysis access. PEG tube placement 3 years ago wit h subsequent removal. SOCIAL HISTORY: Lives at home, has home health and family nearby. No alcohol or drug use. He does continue to smoke on a regular basis. FAMILY HISTORY: Positive for diabetes, hypertension, and heart disease. REVIEW OF SYSTEMS: As per the history of present illness. Denies any recent fevers or chills since his last hospitalization. General: He does admit to increased weakness. Cardiac: No chest pain. Pulmonary: Positive cough, positive shortness of breath, no hemoptysis. Gastrointestinal: No nause a, vomiting, abdominal pain, melena, hematochezia. Genitourinary: No dysuria, hematuria. Neurologi c: He is wheelchair bound, increased weakness. No syncope, no falls, no seizure activity. PHYSICAL EXAMINATION: VITAL SIGNS: Temperature 97.9, pulse of 80, respirations 18, blood pressure 164/82, pulse ox 98% on room air. GENERAL: He is awake and alert. He does appear lethargic, but cooperates with exam appropriately. Mucosa is moist. NECK: Supple, no JVD, adenopathy, no bruits. HEART: Regular rate and rhythm. LUNGS: With decreased breath sounds, rhonchi bilaterally, rales at the bases. ABDOMEN: Soft. EXTREMITIES: With 1+ edema, worse on the left side. Diminished peripheral pulses bilaterally. LABORATORY AND X-RAY FINDINGS: Sodium 137, potassium 4.2, chloride 98, CO2 of 23, BUN and creatinine 28 and 4.93 with a GFR of 12. Serum glucose of 148, calcium of 8.5. AST and ALT are normal. Tropo kwadwo I has been trending 0.022, 0.040, 0.066. BNP in the emergency department was elevated at 2754. White blood cell count 14,900, hemoglobin hematocrit 9.4 and 29.7, platelets of 191. Chest x-ray rev ealed worsening right lower lobe airspace opacity suspicious for pneumonia. Findings of volume overl oad and CHF. Chest CT angiogram revealed no evidence of pulmonary embolism. A 3.7 cm mass in the ri ght lower lobe, which was not apparent on the last exam on 09/28/2017. Moderate bilateral pleural ef fusions, suspicious for atelectasis. ASSESSMENT AND PLAN: This is a 62-year-old gentleman with multiple medical problems and known cardio myopathy, now with congestive heart failure exacerbation. PLAN: 1. We will admit to telemetry, continue rule out myocardial infarction protocol probably cardiac str ain due to his heart failure causing the elevated troponin. Consult Cardiology, probably repeat his echocardiogram at this time. 2. End stage renal disease. He is to be dialyzed today. I will notify Dr. Castillo on re-admission a t this time. 3. Lung mass. Consult Pulmonary to discuss options with the family, he is a poor candidate for surg ical interventions. 4. Repeat or persistent pneumonia. We will restart on IV antibiotics including Rocephin, neb treatm ents as needed and continue to follow closely. CODE STATUS: I had discussion with family and patient, he desires to be FULL code.
[2017-10-13 04:54] LABS: #Eosinphils 0.1 thou/uL (0.0-0.7); #Lymphocytes 1.8 thou/uL (1.20-3.40); #Monocytes 0.8 thou/uL (0.11-0.59); #Neutrophils 6.1 thou/uL (1.40-6.50); %Basophils 0.4 % (0.0-1.0); %Eosinophils 1.2 % (0.0-10.0); %Lymphocytes 19.9 % (21.0-51.0); %Monocytes 9.1 % (0.0-10.0); %Neutrophils 69.5 % (42.0-75.0); Hemoglobin 8.1 g/dL (14.0-18.0); Mean Corpuscular HGB CONC 31.5 g/dL (32.0-36.0); Mean Corpuscular Hemoglobin 28.7 pg (27.0-31.0); Mean Corpuscular Volume 91.2 fl (80.0-94.0); Mean Platelet Volume 8.5 fL (7.4-10.4); Platelet Count 175 thou/uL (130-400); RBC Distribution Width 15.9 % (11.5-14.5); White Blood Cell (WBC) Count 8.8 thou/uL (4.8-10.8)
[2017-10-13 05:04] LABS: ALT (SGPT) 9 U/L (8-55); AST (SGOT) 10 U/L (5-34); Albumin 3.3 g/dL (3.4-4.8); Alkaline Phosphatase 80 U/L (40-150); Anion Gap 13 mmol/L (10-20); BUN (Urea Nitrogen) 25 mg/dL (8.4-25.7); Bilirubin, Total 0.3 mg/dL (0.2-1.2); Calc. Creatinine Clearance 19 mL/min (70-130); Calcium 8.6 mg/dL (7.8-10.44); Carbon Dioxide 28 mmol/L (23-31); Chloride 96 mmol/L (98-107); Estimated GFR-MDRD 14; Globulin 3.1 g/dL (2.4-3.5); Glucose 191 mg/dL (80-115); Potassium 3.9 mmol/L (3.5-5.1); Protein, Total 6.4 g/dL (5.8-8.1); Sodium 133 mmol/L (136-145)
--- NOTE | 2017-10-13 10:21 | PRG ---
DATE OF SERVICE: 10/13/2017 SUBJECTIVE: The patient presented yesterday with volume overload, shortness of breath and CHF exacer bation. He immediately underwent dialysis and diuresed 3 liters of fluids. The patient this morning states he is feeling much better, breathing easier. No complaints of chest pain. OBJECTIVE: VITAL SIGNS: Temperature 96.9, pulse 82, respirations 18, pulse ox 95, blood pressure 147/64. HEART: Regular rate and rhythm. LUNGS: Clear. ABDOMEN: Soft. EXTREMITIES: With no edema. LABORATORY: Sodium 132, potassium 3.9, creatinine 4.29, BUN 25. Blood sugar 191 and 157. White cou nt 8.8, H&H 8.1 and 25.6. ASSESSMENT: 1. Volume overload/congestive heart failure, followed by Dr. Shankar. Presently being diuresed thr ough dialysis. The patient's markedly improved. 2. End-stage renal disease being dialyzed, followed by Dr. Castillo. 3. Lung mass, seen by Dr. Ruiz. Unsure if this truly is a mass. The patient has multiple medica l problems, limiting the evaluation. Most likely, optimal course of treatment is to simply reevaluat e in several weeks to see if this resolves. Possibly it may be tap pleural fluid, resolving pneumoni a or rounded atelectasis. He does not seem to be consistent with a malignancy. PLAN: 1. Continued diuresis. 2. Continue dialysis. 3. Reevaluate lung mass in 2-3 weeks.
--- NOTE | 2017-10-13 12:34 | PDOC.CTH ---
<Demetrice Tolentino - Last Filed: 10/13/17 15:13> Cardiology Progress Note - Subjective Patient awake, sitting up in bed, multiple family members at bedside. Describes nausea, recent episode of emesis, states nurse was calling primary for something to help with the nausea. Complains of left-sided chest pain, localized, points to left breast, no change with inspiration. States started after he vomited, rates 2/10 on pain scale. Denies shortness of breath, currently on RA. No overnight events, recently returned from dialysis. - ROS chest pain, nausea - Objective Vital Signs Temp Pulse Resp BP Pulse Ox 10/13/17 07:58 96.9 F L 83 18 95 10/13/17 07:57 96.9 F L 83 18 147/64 H 95 10/13/17 03:59 98.7 F 88 20 166/70 H 99 Weight 162 lb 1.6 oz 10/12/17 10/13/17 10/14/17 06:59 06:59 06:59 Intake Total 920 Output Total 4000 Balance -3080 - Physical Examination General/Neuro: alert & oriented x3 Neck: no JVD present (supple) Lungs: CTA, unlabored respirations Heart: RRR Abdomen: NT/ND, soft - Labs Result Diagrams: 10/13/17 04:28 10/13/17 04:28 Troponin/CKMB CK-MB (CK-2) 1.7 ng/mL (0-6.6) 10/11/17 19:47 Troponin I 0.066 ng/mL (< 0.028) H 10/12/17 03:06 - Assessment/Plan Assessment/Plan: 1.Volume overload, shortness of breath-resolved, echo pending. BNP >2700, Symptoms markedly improved c/ hemodialysis, 3L off. Prior echo (2014) revealed EF 50%-55%. Continue ACEi. 2. CAD-s/p CABG, .multiple peripheral vascular surgeries. On ECASA, statin. Continue clopidogrel. 3. ESRD-on hemodialysis. Followed by 4. HTN-labile, but adequate control 5. Questionable lung mass-reevaluate in 2-3 weeks once stable, followed by 6. Hypercholesterolemia-continue statin <Zarina Logan - Last Filed: 10/13/17 15:15> Cardiology Progress Note - Objective Vital Signs Temp Pulse Resp BP BP Pulse Ox 10/13/17 15:05 83 10/13/17 15:04 148/68 H 10/13/17 07:58 96.9 F L 83 18 95 10/13/17 07:57 96.9 F L 83 18 147/64 H 95 10/13/17 03:59 98.7 F 88 20 166/70 H 99 Weight 162 lb 1.6 oz 10/12/17 10/13/17 10/14/17 06:59 06:59 06:59 Intake Total 920 Output Total 4000 Balance -3080 - Labs Result Diagrams: 10/13/17 04:28 10/13/17 04:28 Troponin/CKMB CK-MB (CK-2) 1.7 ng/mL (0-6.6) 10/11/17 19:47 Troponin I 0.066 ng/mL (< 0.028) H 10/12/17 03:06 Attending Addendum - Attending Addendum Date/Time: 10/13/17 4760 I personally evaluated the patient and discussed the management with Demetrice Tolentino HAND BOOKBINDER I agree with the History, Examination, Assessment and Plan documented above with any addition or exceptions noted below.
[2017-10-13] MEDS ORDERED: Ondansetron HCl/PF 4 MG/2 ML Vial IVP PRN (13:00)
[2017-10-13] MEDS ORDERED: Ondansetron ODT 4 MG TAB PO PRN (13:00)
[2017-10-13] MEDS ORDERED: Promethazine HCl 25 MG/ML VIAL IM SCH (14:00)
--- NOTE | 2017-10-13 14:58 | PRG ---
DATE OF SERVICE: 10/13/2017 SUBJECTIVE: The patient is doing better, had no acute complaints. OBJECTIVE: VITAL SIGNS: Temperature is 96.9, pulse 80, respirations 18, O2 sat 95%, blood pressure 147/64. HEENT: Unremarkable. NECK: No JVD. CHEST: Clear. CARDIAC: S1, S2 regular. ABDOMEN: Soft. EXTREMITIES: Trace edema. ASSESSMENT: 1. Possible right lower lung mass versus rounded atelectasis versus resolving pneumonia versus trap pleural fluid. 2. Congestive heart failure. 3. End-stage renal disease. PLAN: Discussed with the patient and his daughter. I would really like to repeat his imaging in 2-3 weeks and see if this is resolved. If not, perhaps proceed with a biopsy at that time. That will g kalpesh him adequate time to recover from his current episode of heart failure. I have no objection to h im being discharged. I would complete 7 days of antibiotics between inpatient and outpatient.
[2017-10-13] MEDS: cefTRIAXone\\ROCEPHIN 1 GM, Syringe 0.4 ML in Sterile Water 9.6 ML SLOW IVP SCH ×2 (15:03→15:09)
[2017-10-13] MEDS: Lisinopril 10 MG TAB PO SCH ×2 (15:04→21:38)
[2017-10-13] MEDS: Aspirin 81 mg Enteric Coated Tablet PO SCH (15:04)
[2017-10-13] MEDS: HumaLOG 300 UNITS/3 ML VIAL SC SCH ×2 (15:04→17:42)
[2017-10-13] MEDS: Clopidogrel Bisulfate 75 MG TAB PO SCH (15:04)
[2017-10-13] MEDS: hydrALAZINE 25 MG TAB PO SCH ×3 (15:05→21:39)
[2017-10-13] MEDS: Insulin Detemir 100 UNITS/ML 15 UNITS in Pre-Filled Syringe 1 EACH SC SCH ×2 (15:05→21:40)
[2017-10-13] MEDS ORDERED: Promethazine HCl 25 MG/ML VIAL IM PRN (18:06)
[2017-10-13] MEDS: Gabapentin 300 MG CAP PO SCH (21:38)
[2017-10-13] MEDS: Atorvastatin Calcium 40 MG TAB PO SCH (21:38)
[2017-10-14 05:15] LABS: #Eosinphils 0.1 thou/uL (0.0-0.7); #Lymphocytes 2.2 thou/uL (1.20-3.40); #Monocytes 0.8 thou/uL (0.11-0.59); #Neutrophils 7.6 thou/uL (1.40-6.50); %Basophils 0.3 % (0.0-1.0); %Eosinophils 1.2 % (0.0-10.0); %Lymphocytes 20.3 % (21.0-51.0); %Monocytes 7.4 % (0.0-10.0); %Neutrophils 70.8 % (42.0-75.0); Hemoglobin 9.3 g/dL (14.0-18.0); Mean Corpuscular Hemoglobin 29.2 pg (27.0-31.0); Mean Corpuscular Volume 91.2 fl (80.0-94.0); Mean Platelet Volume 8.4 fL (7.4-10.4); Platelet Count 221 thou/uL (130-400); RBC Distribution Width 15.9 % (11.5-14.5); White Blood Cell (WBC) Count 10.8 thou/uL (4.8-10.8)
[2017-10-14 05:17] LABS: ALT (SGPT) 10 U/L (8-55); AST (SGOT) 13 U/L (5-34); Albumin 3.6 g/dL (3.4-4.8); Alkaline Phosphatase 79 U/L (40-150); Anion Gap 13 mmol/L (10-20); BUN (Urea Nitrogen) 21 mg/dL (8.4-25.7); Bilirubin, Total 0.3 mg/dL (0.2-1.2); Calc. Creatinine Clearance 20 mL/min (70-130); Calcium 9.1 mg/dL (7.8-10.44); Carbon Dioxide 29 mmol/L (23-31); Chloride 99 mmol/L (98-107); Estimated GFR-MDRD 16; Globulin 3.4 g/dL (2.4-3.5); Glucose 176 mg/dL (80-115); Potassium 3.7 mmol/L (3.5-5.1); Sodium 137 mmol/L (136-145)
[2017-10-14] MEDS: hydrALAZINE 25 MG TAB PO SCH ×3 (08:14→21:07)
[2017-10-14] MEDS: Aspirin 81 mg Enteric Coated Tablet PO SCH (08:14)
[2017-10-14] MEDS: Lisinopril 10 MG TAB PO SCH ×2 (08:15→21:07)
[2017-10-14] MEDS: Clopidogrel Bisulfate 75 MG TAB PO SCH (08:15)
[2017-10-14] MEDS: HumaLOG 300 UNITS/3 ML VIAL SC SCH ×3 (08:16→17:14)
[2017-10-14] MEDS: Insulin Detemir 100 UNITS/ML 15 UNITS in Pre-Filled Syringe 1 EACH SC SCH ×2 (08:17→21:08)
--- NOTE | 2017-10-14 08:24 | PRG ---
DATE OF SERVICE: 10/14/2017 SUBJECTIVE: The patient is breathing easier, feeling much better this morning. However, the trihealthta er states he is still very sleepy. OBJECTIVE: VITAL SIGNS: Temperature 98.2, pulse 81, respirations 17, pulse ox 98 on 2 liters, blood pressure 13 6/64. GENERAL: The patient does not appear to be in distress. HEART: Regular rate and rhythm. LUNGS: Clear. ABDOMEN: Soft. EXTREMITIES: With no edema. LABORATORY DATA: White count 10.8, H&H is 9.3 and 29.1. Sodium 137, potassium 3.7, creatinine 3.91 down from 4.29. Blood sugar 150, 176, 133. ASSESSMENT: 1. Volume overload/congestive heart failure. 2. End-stage renal disease on dialysis. 3. Abnormal lung finding. PLAN: 1. Probable discharge following dialysis in the a.m. 2. Reevaluate lung mass in 2-3 weeks. 3. Continue antibiotics.
[2017-10-14] MEDS: Epoetin (ESRD) 20,000 UNITS/ML SC SCH ×2 (10:10→10:13)
[2017-10-14] MEDS: cefTRIAXone\\ROCEPHIN 1 GM, Syringe 0.4 ML in Sterile Water 9.6 ML SLOW IVP SCH (11:42)
--- NOTE | 2017-10-14 13:49 | PDOC.CTH ---
<Demetrice Tolentino - Last Filed: 10/14/17 13:46> Cardiology Progress Note - Subjective Awake, watching Tv, family at bedside. Denies chest pain, shortness of breath, on room air. Denies any further nausea, vomiting, left flank pain. Did not have dialysis today. Has not ambulated today, denies any dizziness. - Objective Vital Signs Temp Pulse Resp BP BP Pulse Ox 10/14/17 11:07 97.6 F 77 16 117/58 L 99 10/14/17 08:15 115/60 10/14/17 08:14 87 10/14/17 08:08 97.2 F L 87 18 143/65 H 97 10/14/17 04:00 98.2 F 81 17 136/64 98 Weight 155 lb 1.6 oz 10/13/17 10/14/17 10/15/17 06:59 06:59 06:59 Intake Total 920 Output Total 4000 Balance -3080 - Physical Examination General/Neuro: alert & oriented x3 Neck: no JVD present Lungs: CTA, unlabored respirations Heart: RRR Abdomen: NT/ND, soft - Telemetry Telemetry Rhythm: SR - Labs Result Diagrams: 10/14/17 04:37 10/14/17 04:37 Troponin/CKMB CK-MB (CK-2) 1.7 ng/mL (0-6.6) 10/11/17 19:47 Troponin I 0.066 ng/mL (< 0.028) H 10/12/17 03:06 - Assessment/Plan Assessment/Plan: 1. Acute on chronic diastolic HF -Echocardiogram revealed EF 50%-55%, mildly increased LV. BNP >2700, Symptoms markedly improved c/ hemodialysis, 3L off. Continue ACEi. 2. CAD-s/p CABG, .multiple peripheral vascular surgeries. On ECASA, statin. Continue clopidogrel. 3. ESRD-on hemodialysis. Followed by 4. HTN-improved as volume status improved, mod LVH 5. Questionable lung mass-reevaluate in 2-3 weeks once stable, followed by 6. Hypercholesterolemia-continue statin Likely D/C home tomorrow after dialysis. <Zarina Logan - Last Filed: 10/14/17 15:47> Cardiology Progress Note - Objective Vital Signs Temp Pulse Resp BP BP Pulse Ox 10/14/17 15:43 75 128/61 10/14/17 15:40 97.6 F 75 15 128/61 97 10/14/17 11:07 97.6 F 77 16 117/58 L 99 10/14/17 08:15 115/60 10/14/17 08:14 87 10/14/17 08:08 97.2 F L 87 18 143/65 H 97 10/14/17 04:00 98.2 F 81 17 136/64 98 Weight 155 lb 1.6 oz 10/13/17 10/14/17 10/15/17 06:59 06:59 06:59 Intake Total 920 Output Total 4000 Balance -3080 - Labs Result Diagrams: 10/14/17 04:37 10/14/17 04:37 Troponin/CKMB CK-MB (CK-2) 1.7 ng/mL (0-6.6) 10/11/17 19:47 Troponin I 0.066 ng/mL (< 0.028) H 10/12/17 03:06 Attending Addendum - Attending Addendum Date/Time: 10/14/17 [id number] I personally evaluated the patient and discussed the management with Demetrice Tolentino NP I agree with the History, Examination, Assessment and Plan documented above with any addition or exceptions noted below.
[2017-10-14] MEDS: Gabapentin 300 MG CAP PO SCH (21:06)
[2017-10-14] MEDS: Atorvastatin Calcium 40 MG TAB PO SCH (21:07)
[2017-10-15 05:03] LABS: #Eosinphils 0.2 thou/uL (0.0-0.7); #Lymphocytes 2.1 thou/uL (1.20-3.40); #Monocytes 0.6 thou/uL (0.11-0.59); #Neutrophils 6.3 thou/uL (1.40-6.50); %Basophils 0.3 % (0.0-1.0); %Lymphocytes 22.4 % (21.0-51.0); %Monocytes 6.6 % (0.0-10.0); %Neutrophils 68.7 % (42.0-75.0); Hemoglobin 9.5 g/dL (14.0-18.0); Mean Corpuscular HGB CONC 32.2 g/dL (32.0-36.0); Mean Corpuscular Hemoglobin 29.7 pg (27.0-31.0); Mean Corpuscular Volume 92.2 fl (80.0-94.0); Mean Platelet Volume 8.3 fL (7.4-10.4); Platelet Count 225 thou/uL (130-400); RBC Distribution Width 15.6 % (11.5-14.5); White Blood Cell (WBC) Count 9.2 thou/uL (4.8-10.8)
[2017-10-15 05:18] LABS: ALT (SGPT) 15 U/L (8-55); AST (SGOT) 13 U/L (5-34); Albumin 3.3 g/dL (3.4-4.8); Alkaline Phosphatase 93 U/L (40-150); Anion Gap 14 mmol/L (10-20); BUN (Urea Nitrogen) 34 mg/dL (8.4-25.7); Bilirubin, Total 0.3 mg/dL (0.2-1.2); Calc. Creatinine Clearance 13 mL/min (70-130); Calcium 9.1 mg/dL (7.8-10.44); Carbon Dioxide 29 mmol/L (23-31); Chloride 96 mmol/L (98-107); Estimated GFR-MDRD 10; Globulin 3.4 g/dL (2.4-3.5); Glucose 196 mg/dL (80-115); Potassium 3.9 mmol/L (3.5-5.1); Protein, Total 6.7 g/dL (5.8-8.1); Sodium 135 mmol/L (136-145)
[2017-10-15 07:54] VITALS: TEMP 97.4
[2017-10-15] MEDS: HumaLOG 300 UNITS/3 ML VIAL SC SCH (08:02)
[2017-10-15] MEDS: Clopidogrel Bisulfate 75 MG TAB PO SCH (09:54)
[2017-10-15] MEDS: Aspirin 81 mg Enteric Coated Tablet PO SCH (09:54)
[2017-10-15] MEDS: Lisinopril 10 MG TAB PO SCH (09:54)
[2017-10-15] MEDS: hydrALAZINE 25 MG TAB PO SCH (09:54)
[2017-10-15 09:57] VITALS: BP 130/60
[2017-10-15] MEDS: Insulin Detemir 100 UNITS/ML 15 UNITS in Pre-Filled Syringe 1 EACH SC SCH (10:19)
--- NOTE | 2017-10-15 10:38 | DIS ---
DATE OF ADMISSION: 10/12/2017 DATE OF DISCHARGE: 10/15/2017 ADMISSION DIAGNOSES: 1. Cardiomyopathy, congestive heart failure exacerbation, fluid overload. 2. Recent admission for aspiration pneumonia. 3. End-stage renal disease, on dialysis. 4. New onset lung mass. 5. Type 2 diabetes. 6. Anxiety/depression. DISCHARGE DIAGNOSES: Congestive heart failure exacerbation, improved; cardiomyopathy with a reduced ejection fraction; end-stage renal disease; lung mass, workup in progress. CONSULTATIONS: Dr. Castillo for Nephrology, Dr. Shankar for Cardiology, and Dr. Ruiz for Pulmonolo gy. HOSPITAL COURSE: This is a 62-year-old gentleman with multiple medical problems with recent admissio n for aspiration pneumonia due to aphasia secondary to past CVA. He has had multiple admissions for the same. He was admitted and started on IV antibiotics, treated for his pneumonia, and was discharg ed home in relatively good condition with strict aspiration precautions. He presented back to the em ergency department 1 week later with increased shortness of breath, increased swelling, and increased weakness. In the emergency department, he was found to be fluid overloaded with increased edema. [facility] BNP was elevated over 1999. He was dialyzed on the day of admission and removed 3 liters of fluid with significant improvement of his symptoms. He eventually ruled out for an IN with negative cardi ac enzymes. His weight came down from 170 down to 157 and he improved significantly clinically. On admission, he was found to have a new right-sided lung mass on the same side where he had his aspirat ion pneumonia. Dr. Ruiz saw the patient in evaluation, and was uncertain if the lung mass appeare d malignant versus rounded atelectasis versus resolving pneumonia versus trapped pleural fluid. He r ecommended resolving the heart failure and pneumonia completely and then reexamined in the outpatient setting for further plan at that time. The patient was stable for discharge and to be dialyzed at [facility]. DISCHARGE PHYSICAL EXAMINATION: VITAL SIGNS: Temperature 97.4, pulse of 96, respirations 16, blood pressure 161/70, pulse ox is 97% on room air. GENERAL: He is awake and alert, in no acute distress. Speech is clear. NECK: Supple. HEART: Regular rate and rhythm. LUNGS: Clear bilaterally in all 4 lobes. ABDOMEN: Soft. EXTREMITIES: With no edema. DISCHARGE LABORATORY DATA: White blood cell count 9,200, hemoglobin hematocrit 9.5 and 29.5, platele ts of 225. Sodium 135, potassium 3.9, chloride 96, CO2 of 29, BUN and creatinine 34 and 5.7 with a G FR of 10. Accu-Cheks of 180, 208, 109, 151. DISCHARGE MEDICATIONS: Include aspirin 81 mg daily, Lipitor 40 mg daily, Omnicef 300 mg b.i.d. for 7 more days, Plavix 75 mg daily, Procrit in dialysis, gabapentin 600 mg at bedtime, hydralazine 50 mg t.i.d., Levemir 15 units twice a day, Humalog 5 units t.i.d. with meals, lisinopril 10 mg b.i.d., Imo dium p.r.n. diarrhea, Protonix 40 mg daily, Zoloft 100 mg daily. FOLLOWUP INSTRUCTIONS: Patient to follow up in my office in 1 week. Follow up with Dr. Shankar in 2-[address] Ruiz in 2-3 weeks.
== END 2017-10-15 10:11 | disposition home or self-care (01) | DRG 291 ==
LOC: ERS 19:06 → 2SW 22:25 → OBSVTOIN 10-12 08:17 → 2NO 10-12 10:52
PROVIDERS: ADMIT Family Medicine; ATTEND Family Medicine
PROC: 5A1D70Z Performance of Urinary Filtration, Intermittent, Less than 6 Hours Per Day (ICD-10-PCS; principal; 2017-10-13)
DX: I13.2 Hypertensive heart and chronic kidney disease with heart failure and with stage 5 chronic kidney disease, or end stage renal disease (principal); I50.33 Acute on chronic diastolic (congestive) heart failure; E11.22 Type 2 diabetes mellitus with diabetic chronic kidney disease; I42.9 Cardiomyopathy, unspecified; N18.6 End stage renal disease; L03.116 Cellulitis of left lower limb; Z95.1 Presence of aortocoronary bypass graft; Z99.2 Dependence on renal dialysis; I25.10 Atherosclerotic heart disease of native coronary artery without angina pectoris; E78.00 Pure hypercholesterolemia, unspecified; R91.8 Other nonspecific abnormal finding of lung field; Z87.01 Personal history of pneumonia (recurrent); F17.210 Nicotine dependence, cigarettes, uncomplicated; E78.5 Hyperlipidemia, unspecified; Z86.73 Personal history of transient ischemic attack (TIA), and cerebral infarction without residual deficits; F41.9 Anxiety disorder, unspecified; F32.9 Major depressive disorder, single episode, unspecified; D63.1 Anemia in chronic kidney disease; J44.9 Chronic obstructive pulmonary disease, unspecified; M47.896 Other spondylosis, lumbar region; K21.9 Gastro-esophageal reflux disease without esophagitis
CPT/HCPCS: 36415; 36416; 71045; 71275; 80053; 82553; 83880; 84484; 85025; 87040; 90935; 93005; 93306; 94640; 96374; 99406; A4216; G0257; J0696; J1815; J1940; J2550; J7620; Q0162; Q4081

== ENCOUNTER 2017-11-01 12:59 | Outpatient (CLI) | payer MEDICARE ==
--- NOTE | 2017-11-01 13:31 | RAD ---
PA AND LATERAL CHEST TWO VIEWS: HISTORY: A 62-year-old male with a history of dyspnea. COMPARISON: 10/11/2017 FINDINGS: Persistent mass opacity in the right lower lobe, measuring approximately 4.4 cm. Bilateral pleural e ffusions, greater on the left side, also showing no significant change from the prior study. Postop midline sternotomy. Right dual-lumen venous access catheter. IMPRESSION: 1. Persistent right lower lobe mass opacity, measuring approximately 4.4 cm. 2. Bilateral pleural effusions greater on the left side with some probable associated bibasilar subs egmental atelectasis. 3. Stable healed left rib fractures. 4. No evidence for other significant new process. POS: [facility]
== END 2017-11-01 13:00 | disposition home or self-care (01) ==
LOC: RAD 12:59
PROVIDERS: ATTEND Internal Medicine Critical Care Medicine
DX: R06.00 Dyspnea, unspecified (principal); R91.8 Other nonspecific abnormal finding of lung field; J90 Pleural effusion, not elsewhere classified; Z87.81 Personal history of (healed) traumatic fracture
CPT/HCPCS: 71046

== ENCOUNTER 2017-11-20 08:13 | Day surgery (SDC) | payer MEDICARE ==
[2017-11-20 08:27] LABS: #Eosinphils 0.2 thou/uL (0.0-0.7); #Lymphocytes 1.7 thou/uL (1.20-3.40); #Monocytes 0.7 thou/uL (0.11-0.59); #Neutrophils 9.6 thou/uL (1.40-6.50); %Basophils 0.2 % (0.0-1.0); %Lymphocytes 13.6 % (21.0-51.0); %Monocytes 5.7 % (0.0-10.0); %Neutrophils 78.6 % (42.0-75.0); Hemoglobin 10.3 g/dL (14.0-18.0); Mean Corpuscular HGB CONC 31.4 g/dL (32.0-36.0); Mean Corpuscular Hemoglobin 28.9 pg (27.0-31.0); Mean Corpuscular Volume 91.9 fl (80.0-94.0); Mean Platelet Volume 6.9 fL (7.4-10.4); Platelet Count 269 thou/uL (130-400); RBC Distribution Width 15.5 % (11.5-14.5); Red Blood Cell (RBC) Count 3.56 mill/uL (4.70-6.10); White Blood Cell (WBC) Count 12.2 thou/uL (4.8-10.8)
[2017-11-20 08:38] LABS: INR-International Normal Ratio 1.2; PTT 35.5 SEC (22.9-36.1); Prothrombin Time 15.8 SEC (12.0-14.7)
[2017-11-20 09:44] VITALS: BMI 22.8
[2017-11-20 09:57] VITALS: BP 193/71; TEMP 97.9
--- NOTE | 2017-11-20 13:39 | CT ---
CT GUIDED BIOPSY MASS RIGHT LUNG: Indications: Patient referred for biopsy of right lung mass which was identified on prior chest CT of 10-11-17. FINDINGS: Sliver Former CT of chest reveals bilateral pleural effusions, bibasilar atelectasis, and rounded mass in the right lower lobe which measures up to 4 cm diameter. This mass was biopsied using CT guidance using a 19 gauge guide needle. A 20 gauge biopsy needle was advanced through the guide needle and two 20 gauge core specimens were obtained. Pathology confirmed adequate tissue with CT. Post procedure CT shows haziness surrounding the mass consistent with focal bleeding at the biopsy si te. There is no pneumothorax. Procedure Note: The procedure including potential risks and complications such as pneumothorax and hemorrhage were di scussed with patient and his daughter. Patient was placed supine with slight elevation of the right side. CT scan was obtained and skin entr y site was identified. Skin was prepped and draped in a sterile manner. Local anesthesia was administ ered with Lidocaine and bicarb. A 19 gauge guide needle with trocar in place was introduced under CT guidance. Needle was placed into the superior portion of the mass and confirmed by CT. Trocar was rem sadie and the 20 gauge biopsy was introduced and a 20 gauge core specimen obtained. Pathology confirme d adequate tissue with evidence of neoplasm. A second core specimen was obtained. Needle was removed. Post procedure CT shows some surrounding hemorrhage at the biopsy site, however, no pneumothorax was present. The patient tolerated the procedure well. POS: [facility]
--- NOTE | 2017-11-20 14:50 | RAD ---
TWO VIEW CHEST: Technique: Upright frontal PA inspiration and expiration views of the chest obtained. Indication: Follow up right lung biopsy. FINDINGS: The right lung mass is again noted. Bilateral pleural effusions are noted. No evidence of pneumothora x identified. Central line is unchanged. IMPRESSION: No evidence of post procedure pneumothorax. POS: [facility]
== END 2017-11-20 13:25 | disposition home or self-care (01) ==
LOC: CT 08:13
PROVIDERS: ATTEND Internal Medicine Critical Care Medicine
PROC: 0BDK4ZX Extraction of Right Lung, Percutaneous Endoscopic Approach, Diagnostic (ICD-10-PCS; principal; 2017-11-20)
DX: C34.31 Malignant neoplasm of lower lobe, right bronchus or lung (principal); I12.0 Hypertensive chronic kidney disease with stage 5 chronic kidney disease or end stage renal disease; E11.22 Type 2 diabetes mellitus with diabetic chronic kidney disease; N18.6 End stage renal disease; E11.51 Type 2 diabetes mellitus with diabetic peripheral angiopathy without gangrene; E78.5 Hyperlipidemia, unspecified; I42.9 Cardiomyopathy, unspecified; F32.9 Major depressive disorder, single episode, unspecified; F41.9 Anxiety disorder, unspecified; F17.200 Nicotine dependence, unspecified, uncomplicated; Z88.5 Allergy status to narcotic agent; Z79.82 Long term (current) use of aspirin; Z79.4 Long term (current) use of insulin; Z79.899 Other long term (current) drug therapy; Z99.2 Dependence on renal dialysis; Z95.1 Presence of aortocoronary bypass graft; Z98.890 Other specified postprocedural states; Z86.73 Personal history of transient ischemic attack (TIA), and cerebral infarction without residual deficits
CPT/HCPCS: 32405; 36415; 71045; 77012; 85025; 85610; 85730; 88305; 88313; 88333; 88334; 88341; 88342

== ENCOUNTER 2017-11-30 21:35 | Emergency (ER) | payer MEDICARE ==
[2017-11-30 22:24] LABS: #Eosinphils 0.1 thou/uL (0.0-0.7); #Lymphocytes 1.3 thou/uL (1.20-3.40); #Monocytes 0.7 thou/uL (0.11-0.59); #Neutrophils 8.8 thou/uL (1.40-6.50); %Basophils 0.1 % (0.0-1.0); %Eosinophils 0.9 % (0.0-10.0); %Lymphocytes 12.1 % (21.0-51.0); %Monocytes 6.6 % (0.0-10.0); %Neutrophils 80.3 % (42.0-75.0); Hemoglobin 10.5 g/dL (14.0-18.0); Mean Corpuscular HGB CONC 31.9 g/dL (32.0-36.0); Mean Corpuscular Hemoglobin 29.2 pg (27.0-31.0); Mean Corpuscular Volume 91.5 fl (80.0-94.0); Mean Platelet Volume 7.6 fL (7.4-10.4); Platelet Count 263 thou/uL (130-400); RBC Distribution Width 15.5 % (11.5-14.5); Red Blood Cell (RBC) Count 3.59 mill/uL (4.70-6.10); White Blood Cell (WBC) Count 10.9 thou/uL (4.8-10.8)
--- NOTE | 2017-11-30 22:39 | RAD ---
CHEST ONE VIEW 11/30/17 HISTORY: Chest pain. Dyspnea. COMPARISON: Chest radiograph 10/11/17. FINDINGS: Bilateral layering effusions. Mild pulmonary edema. There are basilar opacities bilaterally. No pneum othorax. Heart size is enlarged. Dialysis catheter tip in the right atrium. IMPRESSION: Layering effusions, edema, cardiomegaly as well as a right lower lobe mass. POS: [facility]
[2017-11-30 22:44] LABS: ALT (SGPT) 10 U/L (8-55); AST (SGOT) 11 U/L (5-34); Albumin 3.9 g/dL (3.4-4.8); Alkaline Phosphatase 88 U/L (40-150); Anion Gap 16 mmol/L (10-20); BUN (Urea Nitrogen) 15 mg/dL (8.4-25.7); Bilirubin, Total 0.5 mg/dL (0.2-1.2); CK (CPK) 31 U/L (30-200); Calc. Creatinine Clearance 0 mL/min (70-130); Calcium 9.6 mg/dL (7.8-10.44); Carbon Dioxide 31 mmol/L (23-31); Chloride 95 mmol/L (98-107); Estimated GFR-MDRD 19; Globulin 4.2 g/dL (2.4-3.5); Glucose 194 mg/dL (80-115); Potassium 3.8 mmol/L (3.5-5.1); Protein, Total 8.1 g/dL (5.8-8.1); Sodium 138 mmol/L (136-145)
[2017-11-30 22:48] LABS: CKMB 1.2 ng/mL (0-6.6); Troponin I 0.014 ng/mL (< 0.028)
[2017-12-01] MEDS ORDERED: Furosemide 40 MG/4 ML VIAL ONE (00:33)
[2017-12-01] MEDS ORDERED: Furosemide 20 MG/2 ML VIAL ONE (00:33)
== END 2017-12-01 01:06 | disposition home or self-care (01) ==
LOC: ERS 21:35
DX: I13.2 Hypertensive heart and chronic kidney disease with heart failure and with stage 5 chronic kidney disease, or end stage renal disease (principal); I50.9 Heart failure, unspecified; N18.6 End stage renal disease; I25.2 Old myocardial infarction; E11.40 Type 2 diabetes mellitus with diabetic neuropathy, unspecified; E11.51 Type 2 diabetes mellitus with diabetic peripheral angiopathy without gangrene; E11.22 Type 2 diabetes mellitus with diabetic chronic kidney disease; F17.210 Nicotine dependence, cigarettes, uncomplicated; Z86.73 Personal history of transient ischemic attack (TIA), and cerebral infarction without residual deficits; Z79.82 Long term (current) use of aspirin; Z79.4 Long term (current) use of insulin; Z79.899 Other long term (current) drug therapy
CPT/HCPCS: 71045; 80053; 82553; 83605; 84484; 85025; 93005; 96374; J1940

== ENCOUNTER 2017-12-16 11:13 | Emergency (ER) | payer MEDICARE ==
[2017-12-16 13:39] LABS: #Eosinphils 0.4 thou/uL (0.0-0.7); #Lymphocytes 1.8 thou/uL (1.20-3.40); #Monocytes 0.8 thou/uL (0.11-0.59); #Neutrophils 7.4 thou/uL (1.40-6.50); %Basophils 0.3 % (0.0-1.0); %Eosinophils 3.6 % (0.0-10.0); %Lymphocytes 17.1 % (21.0-51.0); %Monocytes 7.7 % (0.0-10.0); %Neutrophils 71.3 % (42.0-75.0); Hemoglobin 8.9 g/dL (14.0-18.0); Mean Corpuscular HGB CONC 32.6 g/dL (32.0-36.0); Mean Corpuscular Hemoglobin 29.5 pg (27.0-31.0); Mean Corpuscular Volume 90.3 fL (78.0-98.0); Mean Platelet Volume 7.6 fL (7.4-10.4); Platelet Count 237 thou/uL (130-400); RBC Distribution Width 14.8 % (11.5-14.5); Red Blood Cell (RBC) Count 3.02 mill/uL (4.70-6.10); White Blood Cell (WBC) Count 10.4 thou/uL (4.8-10.8)
[2017-12-16 13:42] LABS: ALT (SGPT) 36 U/L (8-55); AST (SGOT) 29 U/L (5-34); Albumin 3.3 g/dL (3.4-4.8); Alkaline Phosphatase 139 U/L (40-150); Anion Gap 17 mmol/L (10-20); BUN (Urea Nitrogen) 39 mg/dL (8.4-25.7); Bilirubin, Total 0.4 mg/dL (0.2-1.2); Calc. Creatinine Clearance 0 mL/min (70-130); Calcium 8.6 mg/dL (7.8-10.44); Carbon Dioxide 27 mmol/L (23-31); Chloride 94 mmol/L (98-107); Estimated GFR-MDRD 10; Globulin 3.5 g/dL (2.4-3.5); Glucose 147 mg/dL (80-115); Potassium 4.1 mmol/L (3.5-5.1); Protein, Total 6.8 g/dL (5.8-8.1); Sodium 134 mmol/L (136-145)
== END 2017-12-16 16:42 | disposition home or self-care (01) ==
LOC: ERS 11:13
DX: R04.0 Epistaxis (principal); I25.2 Old myocardial infarction; I13.0 Hypertensive heart and chronic kidney disease with heart failure and stage 1 through stage 4 chronic kidney disease, or unspecified chronic kidney disease; E11.40 Type 2 diabetes mellitus with diabetic neuropathy, unspecified; N18.9 Chronic kidney disease, unspecified; I50.9 Heart failure, unspecified; F31.9 Bipolar disorder, unspecified; F17.210 Nicotine dependence, cigarettes, uncomplicated; Z99.2 Dependence on renal dialysis; Z86.73 Personal history of transient ischemic attack (TIA), and cerebral infarction without residual deficits; Z79.899 Other long term (current) drug therapy; Z79.82 Long term (current) use of aspirin; Z79.4 Long term (current) use of insulin
CPT/HCPCS: 36415; 80053; 85025; 99283

== ENCOUNTER 2018-01-07 18:21 | Emergency (ER) | payer MEDICARE ==
[2018-01-07 19:14] LABS: #Lymphocytes 0.8 thou/uL (1.20-3.40); #Monocytes 0.7 thou/uL (0.11-0.59); #Neutrophils 10.8 thou/uL (1.40-6.50); %Basophils 0.2 % (0.0-1.0); %Eosinophils 0.2 % (0.0-10.0); %Lymphocytes 6.8 % (21.0-51.0); %Monocytes 5.4 % (0.0-10.0); %Neutrophils 87.5 % (42.0-75.0); Mean Corpuscular HGB CONC 33.2 g/dL (32.0-36.0); Mean Corpuscular Hemoglobin 29.5 pg (27.0-31.0); Mean Platelet Volume 7.3 fL (7.4-10.4); Platelet Count 259 thou/uL (130-400); RBC Distribution Width 15.5 % (11.5-14.5); White Blood Cell (WBC) Count 12.4 thou/uL (4.8-10.8)
[2018-01-07 19:32] LABS: ALT (SGPT) 11 U/L (8-55); AST (SGOT) 16 U/L (5-34); Albumin 3.9 g/dL (3.4-4.8); Alkaline Phosphatase 92 U/L (40-150); Anion Gap 19 mmol/L (10-20); BUN (Urea Nitrogen) 23 mg/dL (8.4-25.7); Bilirubin, Total 0.5 mg/dL (0.2-1.2); Calc. Creatinine Clearance 0 mL/min (70-130); Calcium 9.1 mg/dL (7.8-10.44); Carbon Dioxide 27 mmol/L (23-31); Chloride 96 mmol/L (98-107); Estimated GFR-MDRD 14; Globulin 3.8 g/dL (2.4-3.5); Glucose 129 mg/dL (80-115); Potassium 3.8 mmol/L (3.5-5.1); Protein, Total 7.7 g/dL (5.8-8.1); Sodium 138 mmol/L (136-145)
[2018-01-07 19:44] LABS: CK (CPK) 104 U/L (30-200); Lipase 19 U/L (8-78)
[2018-01-07 20:06] LABS: Base Excess-Venous 5.2 mmol/L (0 (+/- 2.5)); Bicarbonate (HCO3v) 27.9 mmol/L (1.0-85.0); CO2 Tension (PvCO2) 33.6 mmHg (41.0-51.0); Calcium, Ionized 0.92 mmol/L (1.12-1.32); Hemoglobin - Calc 12.1 g/dL (12.0-18.0); O2 Tension (PvO2) 56.2 mmHg (35.0-45.0); Potassium 3.7 mmol/L (3.4-4.7); T. Carbon Dioxide 28.9 mmol/L (1.0-85.0); pH (Venous) 7.527 (7.35-7.45); vO2 Saturation-calc 92.1 % (94-98)
--- NOTE | 2018-01-07 20:41 | CT ---
NONCONTRAST CT HEAD: 01/07/2018 HISTORY: Altered mental status. History of lung cancer, post radiation treatments. COMPARISON: 09/06/2016 FINDINGS: Low density foci are again seen in each basal ganglia, likely attributable to remote lacunar infarcti ons. Decreased attenuation is present in the periventricular white matter, likely attributable to ch ronic small vessel ischemic changes, unchanged from prior exam. There is no evidence of an acute cor tical infarction, hemorrhage, mass effect, or midline shift. Mild cerebral volume loss is present. The ventricular system is normal in size, shape, and position for the degree of sulcal atrophy. Ther e has been no interval change from the prior exam. Prominent vascular calcifications are seen in the region of the carotid siphons and distal vertebral arteries. IMPRESSION: 1. No acute intracranial abnormality is demonstrated. 2. Remote lacunar infarctions in each basal ganglia, as well as evidence of mild chronic small vesse l ischemic changes. 3. Cerebral volume loss. POS: [facility]
--- NOTE | 2018-01-07 21:13 | RAD ---
SINGLE VIEW CHEST: HISTORY: Diarrhea. Vomiting. Fever. Lung cancer. COMPARISON: 11/30/2017 FINDINGS: A single view of the chest shows a normal sized cardiomediastinal silhouette. The patient is status post sternotomy. A mass like opacity is seen projecting over the right lower lobe, measuring approxi mately 4.4 cm in size. A dialysis catheter is seen with its tip in the superior vena cava. IMPRESSION: Right lower lobe mass, likely represents the patient's lung malignancy. POS: [facility]
[2018-01-07 22:13] LABS: Bilirubin Negative (Negative); Blood, Urine Negative (Negative); Clarity CLEAR (Clear); Glucose, Urine (Dipstick) 100 mg/dL (Negative); Leukocyte Negative (Negative); Nitrite Negative (Negative); Protein, Urine (Dipstick) > or equal to 300 mg/dL (Neg-Trace); Specific Gravity, Urine 1.016 (1.002-1.036); Urobilinogen 0.2 mg/dL (0.2-1.0)
[2018-01-07 22:16] LABS: Bacteria/HPF None Seen HPF (None Seen); Hyaline Casts/LPF 4-6 HYALINE CAST LPF (0-3 Hyaline); Pathc Cast-AUWi Flag 1.16 (0-2.49); Squamous Epithelial 0-3 HPF (0-3); WBC/HPF 0-3 HPF (0-3)
[2018-01-07 22:20] LABS: Renal Epithelial None Seen HPF (0-3); Transitional Epithelial NONE SEEN HPF (0-3)
== END 2018-01-07 22:25 | disposition home or self-care (01) ==
LOC: ERS 18:21
DX: T62.8X1A Toxic effect of other specified noxious substances eaten as food, accidental (unintentional), initial encounter (principal); C34.31 Malignant neoplasm of lower lobe, right bronchus or lung; I25.2 Old myocardial infarction; E11.22 Type 2 diabetes mellitus with diabetic chronic kidney disease; I13.0 Hypertensive heart and chronic kidney disease with heart failure and stage 1 through stage 4 chronic kidney disease, or unspecified chronic kidney disease; N18.9 Chronic kidney disease, unspecified; I50.9 Heart failure, unspecified; Z79.4 Long term (current) use of insulin; F12.10 Cannabis abuse, uncomplicated; Z79.82 Long term (current) use of aspirin; Z79.899 Other long term (current) drug therapy
CPT/HCPCS: 36415; 51701; 70450; 71045; 80053; 81003; 81015; 82330; 82550; 82803; 83690; 85025; 87040; 93005